=== PATIENT | female | born 1945 | race Caucasian/White ===

== ENCOUNTER 2019-03-26 15:23 | Observation (INO) ==
[2019-03-26] MEDS ORDERED: NS 1,000 ML IV SCH (17:45)
[2019-03-26] MEDS: ZOFRAN IV PRN (18:13)
[2019-03-26 18:30] LABS: BASO# 0.02 X1000 (0.0-0.2); BASO% 0.2 % (0.0-0.8); EOS# 0.02 X1000 (0.0-0.7); EOS% 0.2 % (0.0-10.0); HEMATOCRIT 46.1 % (37.0-47.0); HEMOGLOBIN 14.8 g/dL (12.0-16.0); LYMPH# 3.45 X1000 (1.2-3.4); LYMPH% 33.5 % (20.5-51.1); MCH 24.3 PG (27-31); MCHC 32.1 g/dL (33-37); MCV 75.7 FL (81-99); MONO# 0.75 X1000 (0.11-0.59); MONO% 7.3 % (1.7-9.3); MPV 10.2 FL (7.4-10.4); NEUT# 6.05 X1000 (1.4-6.5); NEUT% 58.8 % (42.2-75.2); PLT 243 X1000 (130-400); RBC 6.09 XMIL (4.2-5.4); WBC 10.29 X1000 (4.8-10.8)
[2019-03-26 18:45] LABS: INR 0.97; PROTIME 13.6 Seconds (11.0-16.0)
[2019-03-26 18:46] LABS: PTT 29.3 Seconds (22.3-41.8)
[2019-03-26 19:01] LABS: AGAP 13; ALB/GLOB RATIO 1.3; ALBUMIN 3.3 g/dL (3.5-5.0); ALKALINE PHOSPHATASE 87 U/L (32-104); BUN 11 mg/dL (8-22); CHLORIDE 94 mmol/L (98-107); COSMO 274; CREATININE 0.5 mg/dL (0.5-0.9); ESTIMATED GFR > 60; GLUCOSE 109 mg/dL (70-104); GOT 13 U/L (10-30); GPT 7 U/L (10-36); SODIUM 137 mmol/L (136-145); TCO2 30 mmol/L (25-35); TOTAL BILIRUBIN 0.64 mg/dL (0.20-1.00); TOTAL PROTEIN 5.9 g/dL (6.3-8.3)
[2019-03-26 19:05] LABS: MAGNESIUM 1.2 mg/dL (1.5-2.7)
[2019-03-26] MEDS: NORCO-5 PO PRN (20:18)
[2019-03-26] MEDS: DUONEB (A & A) INH SCH (21:32)
[2019-03-26] MEDS: MORPHINE IV PRN (22:32)
[2019-03-27] MEDS: MORPHINE IV PRN ×2 (03:04→10:06)
[2019-03-27] MEDS: DUONEB (A & A) INH SCH ×4 (03:22→20:15)
[2019-03-27 03:29] LABS: URINE SOURCE CLEAN CATCH
[2019-03-27 03:35] LABS: BILIRUBIN URINE NEGATIVE (NEGATIVE); BLOOD URINE NEGATIVE (NEGATIVE); COLOR YELLOW; GLUCOSE URINE NEGATIVE (NEGATIVE); KETONE URINE TRACE mg/dL (NEGATIVE); LEUKOCYTES URINE NEGATIVE (NEGATIVE); NITRITE URINE NEGATIVE (NEGATIVE); PROTEIN URINE TRACE mg/dL (NEGATIVE); SP GRAVITY URINE 1.014; TURBIDITY URINE CLEAR (CLEAR); UROBILINOGEN URINE NORMAL (NORMAL)
[2019-03-27 03:48] LABS: UR EPITHELIAL CELLS <10 /HPF (<10); URINE BACTERIA NEGATIVE /HPF; URINE RBC <10 /HPF (<10); URINE WBC <10 /HPF (<10)
[2019-03-27 03:53] LABS: URINE CASTS NONE SEEN; URINE CRYSTALS NONE SEEN; URINE SMALL ROUND CELLS NONE SEEN; URINE YEAST PRESENT
[2019-03-27 06:09] LABS: BASO# 0.03 X1000 (0.0-0.2); BASO% 0.2 % (0.0-0.8); EOS# 0.03 X1000 (0.0-0.7); EOS% 0.2 % (0.0-10.0); HEMATOCRIT 45.5 % (37.0-47.0); HEMOGLOBIN 14.3 g/dL (12.0-16.0); IMM GRAN# 0.03 X1000 (0.0-0.04); IMM GRAN% 0.2 % (0.0-0.5); LYMPH# 3.49 X1000 (1.2-3.4); LYMPH% 27.9 % (20.5-51.1); MCHC 31.4 g/dL (33-37); MCV 76.5 FL (81-99); MONO# 0.89 X1000 (0.11-0.59); MONO% 7.1 % (1.7-9.3); MPV 10.3 FL (7.4-10.4); NEUT# 8.04 X1000 (1.4-6.5); NEUT% 64.4 % (42.2-75.2); PLT 246 X1000 (130-400); RBC 5.95 XMIL (4.2-5.4); RDW 16.2 % (11.5-14.5); WBC 12.51 X1000 (4.8-10.8)
[2019-03-27] MEDS: PRILOSEC PO SCH (06:36)
--- NOTE | 2019-03-27 07:37 | EKG Report ---
Test Performed on : 03/26/2019 6:01:55 PM Test Reason : chest pain Blood Pressure : / mmHG Vent. Rate : 088 BPM Atrial Rate : 101 BPM P-R Int : 208 ms QRS Dur : 074 ms QT Int : 384 ms P-R-T Axes : 095 004 031 degrees QTc Int : 464 ms Sinus tachycardia. with blocked premature atrial complexes. T wave abnormality, consider anterior ischemia Abnormal ECG When compared with ECG of 17-FEB-2014 13:42, Sinus rhythm. has replaced Atrial flutter. Vent. rate has decreased BY 44 BPM Nonspecific T wave abnormality no longer evident in Lateral leads Confirmed by Mariela MAN, Florentino Toure ([id number]) on 03/27/2019 7:28:56 PM
[2019-03-27] MEDS ORDERED: IMDUR PO SCH (09:00)
[2019-03-27] MEDS ORDERED: TOPROL XL PO SCH (09:00)
[2019-03-27] MEDS: LIPITOR PO SCH (10:06)
[2019-03-27] MEDS: NEURONTIN PO SCH ×3 (10:06→21:05)
[2019-03-27] MEDS: PRINZIDE 10/12.5MG PO SCH (10:06)
[2019-03-27] MEDS: ZYRTEC PO SCH (10:06)
[2019-03-27] MEDS: TOPROL XL PO SCH (10:07)
[2019-03-27] MEDS: IMDUR PO SCH (10:07)
[2019-03-27] MEDS: NORCO-5 PO PRN (11:11)
--- NOTE | 2019-03-27 11:55 | Diag Imaging Result Doc PS360 ---
EXAM: KUB ABDOMEN INDICATION: abdominal pain, n/v TECHNIQUE: 2 views COMPARISON: 02/17/2014 FINDINGS: There are nonspecific colonic gas patterns with only mild distention. There is no obstructive bowel pattern. There is no evidence of large volume free abdominal gas. There is extensive spondylosis. IMPRESSION: Nonspecific abdomen. Electronically signed by Jh Oliveira 03/27/2019 11:53 AM
--- NOTE | 2019-03-27 12:47 | Diag Imaging Result Doc PS360 ---
CT ANGIOGRAM ABDOMEN - 03/27/2019 INDICATION: abdominal pain, ?mesenteric ischemia TECHNIQUE: Axial CT images were obtained after administering intravenous contrast. Coronal MIP images were generated. COMPARISON: 03/13/2019 FINDINGS: There is some mild linear atelectasis in the lower lobes. Heart size is normal with no pericardial effusion. The left kidney is extremely atrophic with only a tiny artery supplying it. The right kidney is normal in size. The right renal artery does demonstrate moderate stenosis at its origin, with about 40% narrowing. There is also scattered mild to moderate stenosis of the superior mesenteric artery, up to 40% narrowed. This is mostly proximal disease. The inferior mesenteric artery is also diseased with mild stenosis of about 25 %. The abdominal aorta itself is heavily calcified but no aneurysm or significant stenosis. There is heavy vascular disease of the iliac artery systems, with some stenosis of the internal iliac arteries bilaterally. No bowel obstruction or inflammation. Normal appendix. Other soft tissues are clear. There is severely advanced spondylosis throughout the spine. No acute bony lesions. IMPRESSION: Moderate vascular disease of the aorta and its branches. This involves the right renal artery, mesenteric arteries, and internal iliac arteries. The left kidney is extremely atrophic stable from prior. Right renal size is normal. This exam was performed using automated exposure control, adjustment of mA or kV according to patient size, and/or use of iterative reconstruction technique Electronically signed by Fahad Sloan 03/27/2019 12:44 PM
[2019-03-27] MEDS: NORCO-7.5 PO PRN ×2 (14:25→21:05)
--- NOTE | 2019-03-27 15:18 | HISTORY AND PHYSICAL ---
CHIEF COMPLAINT: Abdominal pain, nausea, and vomiting. ENTRY LEVEL RECEPTIONIST: Ebenezer Bull DO HISTORY OF PRESENT ILLNESS: Patient is a 73-year-old female, who presents to the hospital today as a direct admit. Patient states that a week ago, she started having abdominal pain. She went to the ER a couple of times this week and went to see Dr. Boyer in his office on Tuesday. Patient was supposed to have a HIDA scan today with Dr. Boyer, but states she was unable to have the HIDA scan because she was having too much abdominal pain and nausea and vomiting. Dr. Boyer called to have the patient admitted to the hospital today as a direct admit from his office. Patient is being admitted to the hospitalist service today and Dr. Boyer is being consulted. Patient is complaining of pain across her entire right side of her abdomen that hurts when she presses in and takes a deep breath. Patient states her pain is a 10/10. She has been taking [place] for this pain, and it does seem to get a little better but does not completely ever go away. Patient has had a CAT scan, also has had an ultrasound and they have not found anything that is noted to be remarkable on these tests. Patient was supposed to have a HIDA scan today. She does complain of some diarrhea, and she does have nausea and vomiting with this pain. Patient does not have any shortness of breath. She does not have any other complaints at this time. The patient denies any chest pain, any dizziness, any headache. PAST MEDICAL HISTORY: Hypertension, ME, GERD, neuropathy, back surgery x4, skin cancer, COPD. Patient continues to smoke 1 pack a day. Patient states that on the recent CAT scan they found that she only had 1 working kidney. PAST SURGICAL HISTORY: Skin cancer removal, back surgery x4, venectomy, rib resection, appendectomy, and hysterectomy. FAMILY HISTORY: Not significant at this time. SOCIAL HISTORY: Patient states she smokes 1 pack of cigarettes per day for greater than 60 years. Patient lives at home with her spouse. She denies any alcohol or drug abuse. ALLERGIES: Phenergan and Percocet. MEDICATIONS: 1. ProAir 2 inhaled puffs t.i.d. 2. Aspirin 325 mg p.o. daily. 3. Plavix 75 mg p.o. q.a.m. 4. [place] 7.5 mg p.o. 4 times a day p.r.n. 5. NitroQuick sublingual 0.4 mg p.r.n. 6. Omeprazole 20 mg p.o. q.a.m. 7. Zofran 8 mg p.o. q.4 h. p.r.n. 8. Lipitor 40 mg p.o. q.a.m. 9. Zyrtec 10 mg 1 tablet p.o. daily. 10.Gabapentin 600 mg p.o. t.i.d. 11.Imdur 60 mg p.o. q.a.m. 12.Lisinopril/hydrochlorothiazide 20/25 mg tablets 1 p.o. q.a.m. 13.Toprol-XL 50 mg p.o. q.a.m. DIAGNOSTIC STUDIES: White blood cell count 10.39, hemoglobin 14.8, hematocrit 46.1, platelet count 243. PT 13.6, INR 0.97, PTT 29.3. Sodium 137, potassium 4.0, chloride 94, BUN 11, creatinine 0.5, GFR is greater than 60, glucose 109, calcium 9, magnesium 1.2, AST 13, ALT 7. Troponin less than 0.01. TSH 1.85. REVIEW OF SYSTEMS: A 12-point review of systems was completed and all are negative except as stated above in the HPI. PHYSICAL EXAMINATION: VITAL SIGNS: Temperature 97.8, pulse rate 50, respiratory rate 18, blood pressure 153/64, O2 saturation 93% on room air. WEIGHT: 195. HEIGHT: 5 feet 9 inches. GENERAL: This is a well-developed, well-nourished 73-year-old female, who is in no acute distress at this present time. She is lying in the hospital bed. HEENT: Atraumatic, normocephalic. Pupils are equal, round, and reactive to light. Mucous membranes dry. No dentition noted. NECK: Supple. No lymphadenopathy. Trachea midline. No JVD noted. CARDIOVASCULAR: No murmur, gallops, or rubs noted. Regular rate and rhythm. RESPIRATORY: Lungs sounds are coarse. Wheezes noted bilaterally upon expiration. Respirations are nonlabored with no accessory muscle usage. GASTROINTESTINAL: Abdomen is tender to touch, especially to the right side. Bowel sounds are present. Abdomen is nondistended. NEUROLOGICAL: Patient is awake, alert, and oriented. All cranial nerves intact. Patient follows commands appropriately. MUSCULOSKELETAL: Full distal strength noted. No abnormalities. EXTREMITIES: No clubbing, cyanosis. No edema. DP and PT pulses are present and intact. SKIN: Warm, dry, intact. No rashes, bruises. ASSESSMENT: 1. Nausea and vomiting. 2. Abdominal pain, possibly cholelithiasis. 3. Chronic obstructive pulmonary disease. 4. Hypertension. PLAN: We will admit this patient to the medical floor. We will place this patient on IV fluid hydration for 1 bag. Start patient on breathing treatments q.4 h. scheduled. We will do a HIDA scan in the morning on this patient and a KUB. We will consult Dr. Boyer on this patient and give this patient IV Zofran and pain medication as needed. Patient seen and examined by me face to face, all the laboratory, vitals signs, images were reviewed, patient has been admitted as a direct admission by surgery department, she has been having nausea, vomiting and abdominal pain, mostly epigastric and RUQ pain, she has been admitted to R/O cholelithiasis, a HIDA scan will be done and evaluated by Dr. Boyer , she will be on telemetry, I agree with the BOARDING HOUSE MANAGER's assessment and plan, Jean Hubbard MD. Dictated by GARY Rausch for Jean Holley MD cc: MD Jean Hodges MD [facility]
[2019-03-28] MEDS: ZOFRAN IV PRN (01:24)
[2019-03-28] MEDS: DUONEB (A & A) INH SCH ×2 (03:45→08:21)
[2019-03-28] MEDS: PRILOSEC PO SCH ×2 (05:55→06:01)
[2019-03-28] MEDS: NORCO-7.5 PO PRN (06:24)
[2019-03-28 06:37] LABS: BASO# 0.02 X1000 (0.0-0.2); BASO% 0.2 % (0.0-0.8); EOS# 0.04 X1000 (0.0-0.7); EOS% 0.4 % (0.0-10.0); HEMATOCRIT 42.3 % (37.0-47.0); HEMOGLOBIN 13.2 g/dL (12.0-16.0); LYMPH# 3.21 X1000 (1.2-3.4); MCHC 31.2 g/dL (33-37); MCV 76.9 FL (81-99); MONO# 0.69 X1000 (0.11-0.59); MONO% 6.9 % (1.7-9.3); MPV 10.2 FL (7.4-10.4); NEUT# 6.06 X1000 (1.4-6.5); NEUT% 60.5 % (42.2-75.2); PLT 235 X1000 (130-400); RDW 16.2 % (11.5-14.5); WBC 10.02 X1000 (4.8-10.8)
[2019-03-28 06:59] LABS: AGAP 6; ALB/GLOB RATIO 0.9; ALBUMIN 2.7 g/dL (3.5-5.0); ALKALINE PHOSPHATASE 73 U/L (32-104); BUN 11 mg/dL (8-22); CALCIUM 8.6 mg/dL (8.8-10.2); CHLORIDE 96 mmol/L (98-107); COSMO 270; CREATININE 0.5 mg/dL (0.5-0.9); ESTIMATED GFR > 60; GLUCOSE 102 mg/dL (70-104); GOT 13 U/L (10-30); GPT 5 U/L (10-36); POTASSIUM 3.1 mmol/L (3.5-5.1); SODIUM 135 mmol/L (136-145); TCO2 33 mmol/L (25-35); TOTAL BILIRUBIN 0.74 mg/dL (0.20-1.00); TOTAL PROTEIN 5.6 g/dL (6.3-8.3)
[2019-03-28] MEDS: TOPROL XL PO SCH (09:32)
[2019-03-28] MEDS: LIPITOR PO SCH (09:32)
[2019-03-28] MEDS: ZYRTEC PO SCH (09:32)
[2019-03-28] MEDS: PRINZIDE 10/12.5MG PO SCH (09:32)
[2019-03-28] MEDS: IMDUR PO SCH (09:32)
[2019-03-28] MEDS: NEURONTIN PO SCH (09:33)
[2019-03-28] MEDS ORDERED: MOTRIN PO PRN (11:27)
[2019-03-28 12:21] VITALS: BP 120/60
--- NOTE | 2019-03-29 14:48 | DISCHARGE SUMMARY ---
ADMISSION DATE: 03/26/2019 DISCHARGE DATE: 03/28/2019 CONSULT: Surgery, Dr. Boyer. IMAGING: CT abdomen and pelvis from 03/13/2019 with no acute process. Normal liver and gallbladder. Abdominal x-ray from 03/13/2019 with no acute disease. Again, no liver or gallbladder or pancreas pathology. Abdominal arteriogram 03/27/2019 showing mild to moderate vascular disease, but no severe stenosis. Atrophic left kidney, stable from prior. DISCHARGE DIAGNOSES: 1. Abdominal pain, likely biliary colic. 2. Chronic back pain. 3. Hypertension. 4. Chronic obstructive pulmonary disease. 5. Hyperlipidemia. HOSPITAL COURSE: The patient is a 73-year-old female, who presented with right upper quadrant abdominal pain off and on for 2 to 3 weeks. She was a direct admit from Dr. Boyer's office. She was supposed to have HIDA scan, but she stated she could not do it because of pain, nausea, and vomiting, so she was directed here. She presented to the ER approximately 2 weeks ago with similar complaints. Evaluation then including a CT abdomen and pelvis and abdominal ultrasound were unremarkable. Evaluation here was similarly unremarkable. Her LFTs were normal. Her bilirubin was normal. Her alkaline phosphatase was normal. Previous CT had had some suggestion of significant vascular disease in the abdomen, so CTA of the belly was performed to evaluate for mesenteric ischemia, but it did not show any severe stenosis. The patient did have some right upper quadrant tenderness which was where her pain was located. Attempted to get HIDA scan, but patient refused because of back pain. Discussed with Surgery. They did not feel she needed surgical intervention at this time. Etiology of her pain remains not entirely certain, but given the waxing and waning nature of the location and the lack of any other findings, I suspect biliary colic. The patient's symptoms did resolve spontaneously. Discussed the possibility of attempting a HIDA scan again with higher-dose pain medication beforehand, but patient declined. She desired discharge home. As no major pathology was found and the patient's symptoms resolved, her wishes were followed, and she was discharged home. Did discuss with patient that she could attempt taking ibuprofen if the pain recurred, but to limit her dose and frequency, as she is at risk for bleeding. If patient's symptoms continue, then reattempting HIDA scan with heavy premedication would be a reasonable next step. The patient's chronic issues were overall stable during this hospitalization. DISCHARGE VITALS: Temperature 98.1 degrees, pulse 80, respirations 20, blood pressure 120/68, O2 saturation 98% on room air. DISCHARGE DIET: Low salt, low fat. DISCHARGE MEDICATIONS: Zofran as previously prescribed. Aspirin 325 daily. Imdur 60 mg daily. Atorvastatin 40 mg p.o. daily. Lisinopril/hydrochlorothiazide 20/25 mg 1 tablet daily. Gabapentin 600 mg t.i.d. Nitroglycerin 0.4 mg sublingual. Milo 7.5 mg/325 mg 4 times a day as needed. Omeprazole 20 mg p.o. daily. Plavix 75 mg p.o. daily. Albuterol inhaler as needed. Toprol-XL 50 mg p.o. daily. Zyrtec 1 tablet daily. Ibuprofen up to 800 mg up to 3 times a day, take with food when possible, limit dose and frequency as much as possible. FOLLOW-UP AND PLAN: Patient discharging home to follow up with PCP. Limited dose and frequency ibuprofen if symptoms recur. If symptoms continue to be an issue for some time or worse, then consider HIDA scan with heavy premedication. COORDINATION TIME: Greater than 30 minutes spent arranging discharge and counseling patient.
--- NOTE | 2019-03-29 16:17 | CONSULTATION ---
DATE OF CONSULTATION: 03/27/2019 REQUESTING PHYSICIAN: Hospitalist. REASON FOR CONSULTATION: Concerning abdominal pain. HISTORY OF PRESENT ILLNESS: A 73-year-old female who is known to me, who came to my office on 03/21/2019 with sudden onset of intermittent abdominal pain for a week in the right upper quadrant, associated nausea and vomiting. She had been seen in the emergency department, had an ultrasound was normal and a CT scan that showed no acute pathology. She had some right flank pain, dysuria, nausea, vomiting. She was seen here and we thought potentially this could be related to her gallbladder and we had her scheduled for an outpatient HIDA scan. The patient came in with significant pain and was told to go the ER and was admitted by the Hospitalist. HIDA scan is pending. PAST MEDICAL HISTORY: Arthritis, heart disease, hypertension, history of MS, osteoporosis, pulmonary disease, history of skin cancer. PAST SURGICAL HISTORY: Includes appendectomy, hysterectomy, spinal fusion and spinal surgery. HOME MEDICATIONS: Reviewed. ALLERGIES: Penicillin and Phenergan. FAMILY HISTORY: Positive for arthritis, heart disease and hypertension. SOCIAL HISTORY: Current smoker. REVIEW OF SYSTEMS: Full 10 point review of systems obtained, negative except for those specified in the HPI. PHYSICAL EXAMINATION: Vital Signs: Patient is currently afebrile. Her vital signs stable. General: No acute distress. Resting comfortably. female looks stated age. HEENT: Normocephalic, atraumatic. Pupils equal, round, reactive to light. Mucous membranes moist. Oropharynx benign. Neck: Supple. Trachea midline. Cardiovascular: Regular rate and rhythm. Lungs: Grossly clear. Abdomen: Soft, somewhat tender to palpation on the right side. Extremities: Moves all extremities. Neurologic: Grossly intact. Skin: No signs of jaundice. Vascular: All extremities perfused. LABORATORY DATA: White blood count is 12, hematocrit 45, platelet count 246,000. Bilirubin, AST, ALT and alkaline phosphatase are all normal. IMAGING: HIDA scan is pending. ASSESSMENT AND PLAN: A 73-year-old female with abdominal pain. Abdominal pain. At this time, workup thus far has not shown any pathology, but we will get the HIDA scan today. If this is normal, may consider EGD for her nausea and vomiting. Otherwise, continue supportive care. Appreciate the Hospitalist's help. cc: Broderick Boyer MD
--- NOTE | 2019-03-29 19:14 | PROGRESS NOTE ---
DATE: 03/27/2019 INTERVAL HISTORY: The patient was with no further vomiting but still some significant nausea and right upper quadrant pain that waxes and wanes. No clear relation to food. No new complaints. No acute events overnight. Patient with difficulty completing HIDA scan because of back pain. Back pain is chronic. REVIEW OF SYSTEMS: A 12-point review of systems was negative except as per interval history. LABORATORY DATA: WBC 12.5, hemoglobin 14.3, hematocrit 45.5, platelet count 246. VITALS: T-max 98.6 degrees, pulse 83, respirations 22, blood pressure 124/53, oxygen saturation 92% on room air. IMAGING: Abdominal x-ray shows no acute process. CTA abdomen with moderate vascular disease but no severe stenosis. Atrophic left kidney stable from previous. PHYSICAL EXAMINATION: General: In no acute distress. Vitals: As above. HEENT: Normocephalic, atraumatic. No cervical adenopathy. Cardiovascular: Regular rate and rhythm. No murmurs, rubs or gallops noted. Pulmonary: Clear to auscultation bilaterally. No wheezes, rales or rhonchi. Abdomen: Soft. Mild right upper quadrant tenderness without rebound or guarding. Bowel sounds positive. Extremities: Peripheral pulses intact. No clubbing, cyanosis or edema. Neurologic: Cranial nerves grossly intact. No focal deficits identified. Psychiatric: Normal mood and affect. Awake, alert and oriented x 3. Skin: No new rashes or lesions identified. ASSESSMENT AND PLAN: 1. Nausea, vomiting and abdominal pain, possible biliary colic. Patient with waxing and waning nausea and vomiting and right upper quadrant abdominal pain for the last 2 weeks. LFTs have been normal. Imaging has shown no clear biliary or liver pathology. On last CT approximately 2 weeks ago, there was some concern for stenosis significant enough to cause mesenteric ischemia but CTA today shows reasonable blood flow and less vascular disease than suggested on previous CT. Abdominal ultrasound was unremarkable at that time as well. Given symptoms and the lack of findings on labs or imaging, suspect biliary colic. The patient was unable to complete HIDA scan. We will see if Surgery thinks suspicion for biliary colic is high enough to proceed with cholecystectomy or if we really need to get that HIDA scan. If we really need the HIDA scan, we will attempt to premedicate the patient heavily and repeat that. We will continue symptomatic treatment. 2. Chronic back pain. Patient with significant arthritis. We will continue pain medications. 3. Hypertension. Reasonable blood pressure control on home Imdur and Prinzide and Toprol XL. We will continue those for now. 4. Allergies. Continue home cetirizine. 5. Hyperlipidemia. Continue home Lipitor.
--- NOTE | 2019-03-30 14:02 | GENERAL SURGERY PROGRESS NOTE ---
DATE: 03/28/2019 SUBJECTIVE: The patient seems to be doing about the same. She could not tolerate her HIDA scan so we do not know what her gallbladder looks like on that aspect. She did get a CT scan which did not show her gallbladder looking terrible. OBJECTIVE: Vital signs: The patient is currently afebrile . Her vital signs are stable. General exam: No acute distress. HEENT: Normocephalic, atraumatic. Pupils equal, round, reactive to light. Mucous membranes moist. Oropharynx benign. Neck supple. Trachea is midline. Cardiovascular: Regular rate and rhythm. Lungs grossly clear. Abdomen soft, some mild discomfort but no peritoneal signs. Extremities: Moves all extremities. Neurologic: Grossly intact. Skin: No signs of jaundice. Vascular: All extremities perfused. LABORATORY: Reviewed from yesterday. ASSESSMENT AND PLAN: A 73-year-old female with abdominal pain. Abdominal pain. This time I do not think it is the gallbladder. Imaging does not suggest gallbladder issue although she could not tolerate a HIDA. At this point we will just continue to follow. Nothing new to add. cc: Broderick Boyer MD MTDD
== END 2019-03-28 13:26 | disposition home or self-care (01) ==
LOC: SUATTDRO 15:23 → INTOOBSV 15:23 → DIRADM 15:23 → 4N 17:15
PROVIDERS: ATTEND Internal Medicine
CPT/HCPCS: 74000; 74018; 74175; 80053; 81001; 82550; 83735; 84443; 84484; 85025; 85610; 85730; 93005; 93010; 94640; 94761; 96374; 96375; 96376; A9270; G0378; J2270; J2405; J7030; Q9967